=== PATIENT | female | born 1960 | race Hispanic/Latino ===

== ENCOUNTER 2016-10-09 22:42 | Inpatient (IN) | payer MEDICAID ==
--- NOTE | 2016-10-09 22:53 | C.PDOC ---
History Of Present Illness Patient is a transfer from [facility] for psychiatric admission. Patient is being treated for depression and ETOH abuse; has been medically cleared by [facility]. Denies any physical complaints at this time. Time Seen by Provider: 10/09/16 22:52 Chief Complaint (Nursing): Psychiatric Evaluation History Per: Patient History/Exam Limitations: no limitations Onset/Duration Of Symptoms: Hrs Current Symptoms Are (Timing): Still Present Suicide/Self Injury Attempted (Context): None Modifying Factor(s): None Severity: None Associated Symptoms: Depression. denies: Suicidal Thoughts, Suicidal Plan Involuntary Hold By: None Recent travel outside of the [place]: No Past Medical History Reviewed: Historical Data, Nursing Documentation, Vital Signs Vital Signs: Last Vital Signs Temp 97.5 F L 10/09/16 22:53 Pulse 78 10/09/16 22:53 Resp 20 10/09/16 22:53 BP Pulse Ox 98 10/09/16 22:53 - Medical History PMH: Asthma, Bipolar Disorder, COPD, HTN Surgical History: No Surg Hx Family History: States: No Known Family Hx - Social History Hx Alcohol Use: Yes (daily use for mos) Review Of Systems Constitutional: Negative for: Fever, Chills Gastrointestinal: Negative for: Nausea, Vomiting, Diarrhea Psych: Positive for: Depression Physical Exam - Physical Exam Appears: Non-toxic Skin: Warm, Dry Oral Mucosa: Moist Chest: Symmetrical, No Tenderness Cardiovascular: Rhythm Regular, No Murmur Respiratory: No Rales, No Rhonchi, No Wheezing Gastrointestinal/Abdominal: Soft, No Tenderness Neurological/Psych: Oriented x3 Disposition Discussed With : Dalton Almazan Comment: accepted the pt on his service and took over the care Doctor Will See Patient In The: Hospital Counseled Patient/Family Regarding: Studies Performed, Diagnosis - Disposition Disposition: HOSPITALIZED Disposition Time: 23:00 Condition: FAIR - Clinical Impression Clinical Impression: Depression - Scribe Statement The provider has reviewed the documentation as recorded by the Scribe Cecil Silva All medical record entries made by the Scribe were at my direction and personally dictated by me. I have reviewed the chart and agree that the record accurately reflects my personal performance of the history, physical exam, medical decision making, and the department course for this patient. I have also personally directed, reviewed, and agree with the discharge instructions and disposition. Decision To Admit - Pt Status Changed To: Hospital Disposition Of: Inpatient - Admit Certification Admit to Inpatient:: After my assessment, the patient will require hospitalization for at least two midnights. This is because of the severity of symptoms shown, intensity of services needed, and/or the medical risk in this patient being treated as an outpatient. - InPatient: Physician Admission Certification: I certify that this patient requires 2 or more midnights of care for the following reason:: After my assessment, the patient will require hospitalization for at least two midnights. This is because of the severity of symptoms shown, intensity of services needed, and/or the medical risk in this patient being treated as an outpatient. - . Bed Request Type: Psychiatry Admitting Physician: Dalton Almazan Patient Diagnosis: Depression
--- NOTE | 2016-10-10 11:54 | PCM.PSYCH ---
Initial Psychiatric Evaluation - Initial Psychiatric Evaluation Type of Admission: Voluntary Legal Status: Capacity Chief Complaint (in patient's own words): I was feeling depressed and suicidal History of Present Illness and Precipitating Events: This is a 56 years old CF, who lives with her and currently unemployed, came to the hospital with depressed mood and suicidal ideation with plan to slash her wrist. Patient reports a long history of depression and drinking. Patient reports that she has been admitted in a psychiatric hospital many years ago. As per her, her mother passed way last year and since then she is drinking heavily. She has been drinking almost 3-4 points of what on a daily basis. Almost 3 days ago she became increasingly depressed and developed suicidal ideation [facility] Yesterday she was transferred from [facility]. Patient appeared distressed and irritable throughout the interview. She reports depressed mood, and reports at times feelings of hopelessness and helplessness. She reports poor sleep and poor appetite. She states withdrawal symptoms including shakes, headaches, sweating and anxiety. However she denies any hallucinations, delusions or any manic symptoms. She denies any other substance abuse. Medical history HTN, DM, DVT Current Medications: Active Medications Generic Name Dose Route Start Last Admin Trade Name Freq PRN Reason Stop Dose Admin Trazodone HCl 200 mg 10/10/16 22:00 Desyrel PO HS [facility] Past Psychiatric History - Past Psychiatric History Previous Treatment History: Inpatient Pertinent Medical Hx (Current Medical&Sleep Prob, Allergies): Allergies Allergy/AdvReac Type Severity Reaction Status Date / Time Sulfa (Sulfonamide Allergy RASH Verified 08/10/16 23:16 Antibiotics) Albuterol HFA [Ventolin HFA 90 mcg/actuation (8 g)] 2 puff INH RQ4 PRN 30 Days 08/13/16 Fluticasone/Salmeterol 250/50 [Advair Diskus 250/50] 1 puff IH Q12 30 Days 08/13 Folic Acid 1 mg PO DAILY #30 tab 08/13/16 Gabapentin [Neurontin] 300 mg PO BID #30 cap 08/13/16 Gabapentin [Neurontin] 600 mg PO HS #14 tab 08/13/16 Loperamide [Imodium] 2 mg PO QID PRN #5 cap 08/13/16 Multimineral/Multivitamin [Therapeutic-M Tab] 1 tab PO DAILY #30 tab 08/13/16 Nicotine 21 mg/24 hr [Nicoderm Cq] 1 patch TD DAILY #30 patch 08/13/16 Sertraline [Zoloft] 100 mg PO DAILY #14 tab 08/13/16 Thiamine [Vitamin B1 Tab] 100 mg PO DAILY #30 tab 08/13/16 metFORMIN [glucOPHAGE] 500 mg PO BIDWM 14 Days 08/13/16 traZODone [Desyrel] 150 mg PO HS #14 tab 08/13/16 Review of Systems - Review of Systems All systems: reviewed and no additional remarkable complaints except - Psychiatric Psychiatric: Anxiety, Depression, Irritability, Suicidal Ideation Mental Status Examination - Personal Presentation Personal Presentation: Looks stated age - Affect Affect: Constricted, Depressed - Motor Activity Motor Activity: Calm - Reliability in Providing Information Reliability in Providing Information: Good - Speech Speech: Organized - Mood Mood: Depressed, Anxious - Formal Thought Process Formal Thought Process: No Impairment - Obsessions/Compulsions Obsessions: No Compulsions: No - Cognitive Functions Orientation: Person, Place, Situation, Time Sensorium: Alert Attention/Concentration: Attentive Abstract Thinking: [place] Estimate of Intelligence: Below average Judgement: Imparied, as evidence by: Poor judgement, Imparied, as evidence by: Lack of insight into illness - Risk Risk: Suicidal, Withdrawal, Diminished functioning - Strength & Assets Inventory Strength & Assets Inventory: Family support DSM 5 DX - DSM 5 DSM 5 Diagnosis: Major depressive disorder recurrent severe without psychotic features Alcohol use disorder severe Alcohol withdrawal uncomplicated - Recommended/Plan of Treatment Treatment Recommendations and Plan of Treatment: Major depressive disorder recurrent severe without psychotic features -CBT -Psychoeducation -Supportive therapy, group therapy, individual therapy -Zoloft 200 mg PO Daily -Abilify 2 mg daily -Neurontin 300 mg by mouth 3 times a day -Trazodone 200 mg by mouth daily at bedtime Alcohol use disorder severe -CBT -Psychoeducation -Supportive therapy, individual therapy -Use [place] for abstinence Alcohol withdrawal uncomplicated -CBT -Psychoeducation -Supportive therapy, individual therapy -Ativan when necessary -Folic acid/thiamine/multivitamin HTN -Continue prescribed medications -Monitor signs symptoms DM -Continue prescribed medications (metformin) -Monitor signs symptoms DVT -Continue prescribed medications (Warfarin) -Monitor signs symptoms
[2016-10-10] MEDS: Multiple Vitamins Tab PO SCH (13:03)
[2016-10-10 17:37] LABS: INR 2.6
[2016-10-10] MEDS: Fluticasone-Salmeterol 250-50mcg Diskus INH SCH (21:22)
[2016-10-11] MEDS: Fluticasone-Salmeterol 250-50mcg Diskus INH SCH ×2 (08:34→22:17)
[2016-10-11 09:08] LABS: INR 2.4
[2016-10-11] MEDS: Multiple Vitamins Tab PO SCH (09:53)
--- NOTE | 2016-10-11 11:15 | PCM.PYCHPN ---
Psychiatric Progress Note - Psychiatric Progress Note Patient seen today, length of contact: 15 min Patient Chief Complaint: I m feeling depressed Problems Identified/Issues Discussed: Patient seen and evaluated, chart reviewed and discussed with the nurse. As per the staff, patient still appears isolated, depressed and withdrawn. Patient still reports depressed mood and reports withdrawal symptoms including headaches, anxiety and sweating. However she reports some improvement from yesterday. She needs some more time for stabilization. She is compliant with her medications and denies any side effects. Supportive therapy and psychoeducation were given. Medication Change: No Medical Record Reviewed: Yes Mental Status Examination - Cognitive Function Orientation: Person, Place, Situation, Time Memory: Intact Attention: WNL Concentration: Poor Association: WNL Fund of Knowledge: Poor - Mood Mood: Depressed, Anxious - Affect Affect: Constricted, Depressed - Speech Speech: Soft - Formal Thought Process Formal Thought Process: No Impairment - Suicidal Ideation Suicidal Ideation: No - Homicidal Ideation Homicidal Ideation: No Goal/Treatment Plan - Goal/Treatment Plan Need for Continued Stay: Discharge may exacerbated symptoms, Severe functional impairment Progress Toward Problem(s) and Goals/Treatment Plan: Major depressive disorder recurrent severe without psychotic features -CBT -Psychoeducation -Supportive therapy, group therapy, individual therapy -Zoloft 200 mg PO Daily -Abilify 2 mg daily -Neurontin 300 mg by mouth 3 times a day -Trazodone 200 mg by mouth daily at bedtime Alcohol use disorder severe -CBT -Psychoeducation -Supportive therapy, individual therapy -Use [place] for abstinence Alcohol withdrawal uncomplicated -CBT -Psychoeducation -Supportive therapy, individual therapy -Ativan when necessary -Folic acid/thiamine/multivitamin HTN -Continue prescribed medications -Monitor signs symptoms DM -Continue prescribed medications (metformin) -Monitor signs symptoms DVT -Continue prescribed medications (Warfarin) -Monitor signs symptoms - Smoking Cessation Smoking Cessation Initiated: No
--- NOTE | 2016-10-12 01:21 | CP.PCM.CON ---
<Breanna Anderson - Last Filed: 10/12/16 03:22> History of Present Illness - History of Present Illness History of Present Illness: Medicine Hospitalist consulted for coumadin therapy Patient is a 56 year old female with a past medical history of DM, portal vein thrombosis, and HTN (no not on meds) who came to the hospital with depressed mood and suicidal ideation with plan to slash her wrist. She is now inpatient psych. She reports that she has a history of portal vein thrombosis and is taking coumadin 5mg PO daily. She follow up with her PMD frequently and gets her INRs checked on a regular basis. She reports having HTN but states she does not take any meds because her blood pressure was too low. She has no complaints today. She states that she would like to leave this hospital and attend her outpatient program where she has more group classes. PMHx - HTN, portal vein thrombosis, DM Surg - tubal ligation Meds - coumadin 5mg daily, Metformin 500mg PO BID Allergies - sulfa FamHx - non contributory Social - smokes 1/2 pack per day for 30+ years, denies drug use, 3-4 pints of vodka per day more heavily in the last month Review of Systems - Constitutional Constitutional: absent: Chills, Fever - EENT Eyes: absent: Blurred Vision, Change in Vision - Cardiovascular Cardiovascular: absent: Chest Pain, Chest Pain at Rest, Syncope - Respiratory Respiratory: absent: Cough, Dyspnea, Dyspnea on Exertion - Gastrointestinal Gastrointestinal: absent: Abdominal Pain, Constipation, Diarrhea, Nausea, Vomiting - Musculoskeletal Musculoskeletal: absent: Numbness, Tingling Past Patient History - Past Social History Smoking Status: Current Some Days Smoker - CARDIAC Hx Hypertension: Yes - PULMONARY Hx Asthma: Yes Hx Chronic Obstructive Pulmonary Disease (COPD): Yes - NEUROLOGICAL Hx Neurological Disorder: No Other/Comment: NEUROPATHY - HEENT Hx HEENT Problems: No Other/Comment: did not bring her upper dentures or lower partial plate - RENAL Hx Chronic Kidney Disease: No Other/Comment: portal vein thrombosis - ENDOCRINE/METABOLIC Hx Adrenal Cancer: No Hx Diabetes Insipidus: No Hx Diabetes Mellitus Type 1: No Hx Diabetes Mellitus Type 2: Yes Hx Hyperthyroidism: No Hx Hypothyroidism: No Hx Systemic Lupus Erythematosus: No - HEMATOLOGICAL/ONCOLOGICAL Hx Blood Disorders: No - INTEGUMENTARY Hx Dermatological Problems: No - MUSCULOSKELETAL/RHEUMATOLOGICAL Hx Musculoskeletal Disorders: No Hx Arthritis: Yes - GASTROINTESTINAL Hx Gastrointestinal Disorders: No Hx Gall Bladder Disease: No (Cholecystectomy) - GENITOURINARY/GYNECOLOGICAL Hx Genitourinary Disorders: No - PSYCHIATRIC Hx Substance Use: Yes - SURGICAL HISTORY Hx Cholecystectomy: Yes Hx Tubal Ligation: Yes - ANESTHESIA Hx Anesthesia: Yes Hx Anesthesia Reactions: No Meds Allergies/Adverse Reactions: Allergies Allergy/AdvReac Type Severity Reaction Status Date / Time Sulfa (Sulfonamide Allergy RASH Verified 08/10/16 23:16 Antibiotics) - Medications Medications: Current Medications Acetaminophen (Tylenol 325mg Tab) 650 mg PO Q6 PRN PRN Reason: Pain, moderate (4-7) Aripiprazole (Abilify) 2 mg PO DAILY [facility] Last Admin: 10/11/16 09:53 Dose: 2 mg Famotidine (Pepcid) 20 mg PO DAILY [facility] Last Admin: 10/11/16 17:44 Dose: 20 mg Folic Acid (Folic Acid) 1 mg PO DAILY [facility] Last Admin: 10/11/16 09:53 Dose: 1 mg Gabapentin (Neurontin) 300 mg PO TID [facility] Last Admin: 10/11/16 17:25 Dose: 300 mg Hydroxyzine HCl (Atarax) 25 mg PO Q6 PRN PRN Reason: Agitation Last Admin: 10/10/16 13:06 Dose: 25 mg Lorazepam (Ativan) 1 mg PO Q4H PRN PRN Reason: Symptoms of alcohol withdrawl Metformin HCl (Glucophage) 500 mg PO BIDCC [facility] Last Admin: 10/11/16 16:29 Dose: 500 mg Multivitamins (Hexavitamin) 1 tab PO DAILY [facility] Last Admin: 10/11/16 09:53 Dose: 1 tab Nicotine (Nicoderm Cq) 1 patch TD DAILY [facility] Last Admin: 10/11/16 09:53 Dose: 1 patch Fluticasone/Salmeterol (Advair Diskus 250/50) 1 puff INH RQ12 [facility] Last Admin: 10/11/16 22:17 Dose: 1 puff Sertraline HCl (Zoloft) 200 mg PO DAILY [facility] Last Admin: 10/11/16 09:53 Dose: 200 mg Thiamine HCl (Vitamin B1 Tab) 100 mg PO DAILY [facility] Last Admin: 10/11/16 09:53 Dose: 100 mg Trazodone HCl (Desyrel) 200 mg PO HS [facility] Last Admin: 10/11/16 22:16 Dose: 200 mg Physical Exam - Constitutional Appears: Non-toxic, No Acute Distress - Head Exam Head Exam: ATRAUMATIC, NORMAL INSPECTION - Eye Exam Eye Exam: EOMI, Normal appearance, PERRL Pupil Exam: NORMAL ACCOMODATION - ENT Exam ENT Exam: Mucous Membranes Moist - Respiratory Exam Respiratory Exam: Clear to Auscultation Bilateral, NORMAL BREATHING PATTERN. absent: Accessory Muscle Use, Chest Wall Tenderness, Respiratory Distress - Cardiovascular Exam Cardiovascular Exam: REGULAR RHYTHM, +S1, +S2 - GI/Abdominal Exam GI & Abdominal Exam: Normal Bowel Sounds, Soft. absent: Distended, Firm, Guarding, Tenderness - Extremities Exam Extremities exam: Positive for: normal inspection. Negative for: calf tenderness, pedal edema - Back Exam Back exam: NORMAL INSPECTION. absent: CVA tenderness (L), CVA tenderness (R), paraspinal tenderness - Neurological Exam Neurological exam: Alert, Normal Gait, Oriented x3 Results - Vital Signs Recent Vital Signs: Last Vital Signs Temp 97.9 F 10/11/16 07:50 Pulse 92 H 10/11/16 16:05 Resp 19 10/11/16 07:50 BP 118/70 10/11/16 16:05 Pulse Ox 98 10/09/16 22:53 - Labs Labs: Laboratory Results - last 24 hr 10/11/16 10/11/16 07:25 08:45 PT 28.2 H INR 2.4 POC Glucose (mg/dL) 141 H Assessment & Plan - Assessment and Plan (Free Text) Assessment: Portal vein thrombosis Continue coumadin 5mg PO daily will monitor INR INR - 2.4 Diabetes f/u HBA1c Metformin 500 mg PO BID Asthma controlled continue Advair Duonebs prn Hx HTN controlled not on medications monitor BP All other management per psychiatry team. <French Diallo - Last Filed: 10/12/16 06:26> Meds - Medications Medications: Current Medications Acetaminophen (Tylenol 325mg Tab) 650 mg PO Q6 PRN PRN Reason: Pain, moderate (4-7) Albuterol/Ipratropium (Duoneb 3 Mg/0.5 Mg (3 Ml) Ud) 3 ml INH RQ6 PRN PRN Reason: Wheezing Aripiprazole (Abilify) 2 mg PO DAILY [facility] Last Admin: 10/11/16 09:53 Dose: 2 mg Famotidine (Pepcid) 20 mg PO DAILY [facility] Last Admin: 10/11/16 17:44 Dose: 20 mg Folic Acid (Folic Acid) 1 mg PO DAILY [facility] Last Admin: 10/11/16 09:53 Dose: 1 mg Gabapentin (Neurontin) 300 mg PO TID [facility] Last Admin: 10/11/16 17:25 Dose: 300 mg Hydroxyzine HCl (Atarax) 25 mg PO Q6 PRN PRN Reason: Agitation Last Admin: 10/10/16 13:06 Dose: 25 mg Lorazepam (Ativan) 1 mg PO Q4H PRN PRN Reason: Symptoms of alcohol withdrawl Metformin HCl (Glucophage) 500 mg PO BIDCC [facility] Last Admin: 10/11/16 16:29 Dose: 500 mg Multivitamins (Hexavitamin) 1 tab PO DAILY [facility] Last Admin: 10/11/16 09:53 Dose: 1 tab Nicotine (Nicoderm Cq) 1 patch TD DAILY [facility] Last Admin: 10/11/16 09:53 Dose: 1 patch Fluticasone/Salmeterol (Advair Diskus 250/50) 1 puff INH RQ12 [facility] Last Admin: 10/11/16 22:17 Dose: 1 puff Sertraline HCl (Zoloft) 200 mg PO DAILY [facility] Last Admin: 10/11/16 09:53 Dose: 200 mg Thiamine HCl (Vitamin B1 Tab) 100 mg PO DAILY [facility] Last Admin: 10/11/16 09:53 Dose: 100 mg Trazodone HCl (Desyrel) 200 mg PO HS [facility] Last Admin: 10/11/16 22:16 Dose: 200 mg Results - Vital Signs Recent Vital Signs: Last Vital Signs Temp 97.9 F 10/11/16 07:50 Pulse 92 H 10/11/16 16:05 Resp 19 10/11/16 07:50 BP 118/70 10/11/16 16:05 Pulse Ox 98 10/09/16 22:53 - Labs Labs: Laboratory Results - last 24 hr 10/11/16 10/11/16 07:25 08:45 PT 28.2 H INR 2.4 POC Glucose (mg/dL) 141 H Assessment & Plan - Date & Time Date: 10/12/16 (I have seen and examined the patient. I agree with the findings and plan of care as documented by Dr Anderson. Patient with history of portal vein thrombosis. Continue home dose of Coumadin. Monitor INR. Also with history of diabetes. Continue metformin. Accuchecks. Monitor for acute changes.) Time: 06:25 Attending/Attestation - Attestation I have personally seen and examined this patient.: Yes I have fully participated in the care of the patient.: Yes I have reviewed all pertinent clinical information: Yes
[2016-10-12] MEDS ORDERED: Albuterol-Ipratrop 3 mg / 0.5 (3 ml) UD INH PRN (03:31)
[2016-10-12 08:20] LABS: CHLORIDE 107 mmol/L (98-107); POTASSIUM 4.3 mmol/L (3.6-5.2); SODIUM 142 mmol/L (132-148)
[2016-10-12 08:23] LABS: ALB/GLOB RATIO 1.2 (1.0-2.1); ALKALINE PHOSPHATASE 54 U/L (38-126); ALT/SGPT 19 U/L (9-52); AST/SGOT 17 U/L (14-36); BILIRUBIN,TOTAL 0.6 mg/dL (0.2-1.3); BLOOD UREA NITROGEN 11 mg/dL (7-17); CARBON DIOXIDE 29 mmol/L (22-30); GFR AFRICAN-AMERICAN > 60; GLUCOSE,RANDOM 120 mg/dL (65-105); TOTAL PROTEIN 6.8 g/dL (6.3-8.3)
[2016-10-12 08:24] LABS: CALCIUM 8.6 mg/dl (8.6-10.4)
[2016-10-12 08:31] LABS: BASO % 0.6 % (0.0-2.0); EOS # 0.2 K/uL (0.0-0.7); EOS % 2.3 % (0.0-4.0); HEMATOCRIT 34.4 % (34.0-47.0); LYMPH % 14.1 % (20.0-40.0); MEAN CELL VOLUME 79.8 fL (81.0-99.0); MEAN CORPUSCULAR HEMOGLOBIN 24.7 pg (27.0-31.0); MEAN CORPUSCULAR HGB CONC 30.9 g/dL (33.0-37.0); MEAN PLATELET VOLUME 9.5 fL (7.2-11.7); MONO # 0.7 K/uL (0.0-0.8); NRBC % 0.1 % (0.0-2.0); RED CELL DISTRIBUTION WIDTH 20.8 % (11.5-14.5); WHITE BLOOD COUNT 6.8 K/uL (4.8-10.8)
[2016-10-12 08:32] LABS: INR 2.2
[2016-10-12] MEDS: Fluticasone-Salmeterol 250-50mcg Diskus INH SCH ×2 (08:34→20:12)
[2016-10-12] MEDS: Multiple Vitamins Tab PO SCH (10:01)
--- NOTE | 2016-10-12 18:02 | PCM.PYCHPN ---
Psychiatric Progress Note - Psychiatric Progress Note Patient seen today, length of contact: 16 min Patient Chief Complaint: "Too anxious" Problems Identified/Issues Discussed: The pt is seen, chart reviewed, case discussed with staff. The pt is compliant with medications and reports no side-effects. Symptoms are improving but needs more time to stabilize. After care discussed, support and psychoeducation given. Medicine consult appreciated. Abilify increased as planned [place] used. Medication Change: Yes (increase abilify) Medical Record Reviewed: Yes Mental Status Examination - Cognitive Function Orientation: Person, Place, Situation, Time Memory: Intact Attention: WNL Concentration: Poor Association: WNL Fund of Knowledge: Poor - Mood Mood: Depressed, Anxious - Affect Affect: Constricted, Depressed - Speech Speech: Soft - Formal Thought Process Formal Thought Process: No Impairment - Suicidal Ideation Suicidal Ideation: No - Homicidal Ideation Homicidal Ideation: No Goal/Treatment Plan - Goal/Treatment Plan Need for Continued Stay: Discharge may exacerbated symptoms, Severe functional impairment Progress Toward Problem(s) and Goals/Treatment Plan: Continue medications Support and psychoeducation daily Attend groups and activities daily After care planning by ROBERTO who reported she will return to [facility] and be referred by them (she is moving to her children), and she was mandated to attend [facility]. However, she says she has no place to stay around [facility] and must go to her children and attend a program close-by. TBD Estimated Date of D/C: 10/15/16
--- NOTE | 2016-10-12 21:24 | CP.PCM.PN ---
<AmbreenBari lubin R - Last Filed: 10/12/16 21:21> Subjective - Date & Time of Evaluation Date of Evaluation: 10/12/16 Time of Evaluation: 15:30 - Subjective Subjective: The patient was seen at bedside in psychiatric unit in 5w. Patient was not in acute distress. Patient did not have any complaints. She is tolerating diet and sleeping well. She denies bleeding. She denies chest pain, fevers, nausea, vomiting, diarrhea, shortness of breath. Objective - Vital Signs/Intake and Output Vital Signs (last 24 hours): Temp Pulse Resp BP Pulse Ox 97.5 F L 70 20 143/95 H 99 10/12/16 08:09 10/12/16 15:46 10/12/16 08:09 10/12/16 15:46 10/12/16 08:09 - Medications Medications: Current Medications Acetaminophen (Tylenol 325mg Tab) 650 mg PO Q6 PRN PRN Reason: Pain, moderate (4-7) Last Admin: 10/12/16 15:42 Dose: 650 mg Albuterol/Ipratropium (Duoneb 3 Mg/0.5 Mg (3 Ml) Ud) 3 ml INH RQ6 PRN PRN Reason: Wheezing Aripiprazole (Abilify) 5 mg PO DAILY [facility] Famotidine (Pepcid) 20 mg PO DAILY [facility] Last Admin: 10/12/16 10:01 Dose: 20 mg Folic Acid (Folic Acid) 1 mg PO DAILY [facility] Last Admin: 10/12/16 10:01 Dose: 1 mg Gabapentin (Neurontin) 300 mg PO TID [facility] Last Admin: 10/12/16 17:44 Dose: 300 mg Hydroxyzine HCl (Atarax) 25 mg PO Q6 PRN PRN Reason: Agitation Last Admin: 10/10/16 13:06 Dose: 25 mg Lorazepam (Ativan) 1 mg PO Q4H PRN PRN Reason: Symptoms of alcohol withdrawl Metformin HCl (Glucophage) 500 mg PO BIDCC [facility] Last Admin: 10/12/16 17:44 Dose: 500 mg Multivitamins (Hexavitamin) 1 tab PO DAILY [facility] Last Admin: 10/12/16 10:01 Dose: 1 tab Nicotine (Nicoderm Cq) 1 patch TD DAILY [facility] Last Admin: 10/12/16 10:00 Dose: 1 patch Fluticasone/Salmeterol (Advair Diskus 250/50) 1 puff INH RQ12 [facility] Last Admin: 10/12/16 20:12 Dose: 1 puff Sertraline HCl (Zoloft) 200 mg PO DAILY [facility] Last Admin: 10/12/16 10:01 Dose: 200 mg Thiamine HCl (Vitamin B1 Tab) 100 mg PO DAILY [facility] Last Admin: 10/12/16 10:00 Dose: 100 mg Trazodone HCl (Desyrel) 200 mg PO HS [facility] Last Admin: 10/11/16 22:16 Dose: 200 mg - Labs Labs: 10/12/16 08:05 10/12/16 08:05 PT 26.0 SECONDS (9.7-12.2) H 10/12/16 08:05 INR 2.2 10/12/16 08:05 APTT 46 SECONDS (21-34) H 10/12/16 08:05 - Constitutional Appears: Well - Head Exam Head Exam: ATRAUMATIC, NORMAL INSPECTION, NORMOCEPHALIC - Eye Exam Eye Exam: EOMI, Normal appearance, PERRL - ENT Exam ENT Exam: Mucous Membranes Moist, Normal Exam - Neck Exam Neck Exam: Full ROM, Normal Inspection. absent: Lymphadenopathy - Respiratory Exam Respiratory Exam: Clear to Ausculation Bilateral, NORMAL BREATHING PATTERN - Cardiovascular Exam Cardiovascular Exam: REGULAR RHYTHM, +S1, +S2. absent: Murmur - GI/Abdominal Exam GI & Abdominal Exam: Soft, Normal Bowel Sounds. absent: Tenderness - Rectal Exam Rectal Exam: Deferred - Extremities Exam Extremities Exam: Full ROM, Normal Capillary Refill, Normal Inspection. absent : Joint Swelling, Pedal Edema - Neurological Exam Neurological Exam: Alert, Awake, CN II-XII Intact, Normal Gait, Oriented x3 - Psychiatric Exam Psychiatric exam: Normal Affect, Normal Mood - Skin Skin Exam: Dry, Intact, Normal Color, Warm Assessment and Plan (1) Portal vein thrombosis Assessment & Plan: INR 2.2 Patient compliant with coumidin 5mg. Will continue her coumidin while she is hospitalized. Check INR tomorrow before starting coumidin. Status: Chronic (2) Hypertension Assessment & Plan: Hydroxyzine 25 PO q6 prn monitor BP Status: Acute (3) DM type 2 (diabetes mellitus, type 2) Assessment & Plan: consistent carb diet metformin 500 mg PO BID Status: Chronic (4) Depression Assessment & Plan: Psychiatry managing patient zoloft 200mg po daily abilify 2mg daily neurontin 300mg po TID neurontin 300mg po TID trazodone 200mg po qd Status: Acute (5) Asthma Assessment & Plan: continue advair duonebs prn Status: Acute (6) Prophylactic measure Assessment & Plan: pepcid 20mg po daily Status: Acute <Grzegorz Christina M - Last Filed: 10/13/16 14:04> Objective - Vital Signs/Intake and Output Vital Signs (last 24 hours): Temp Pulse Resp BP Pulse Ox 98.2 F 84 20 113/84 99 10/13/16 08:32 10/13/16 08:32 10/13/16 08:32 10/13/16 08:32 10/12/16 08:09 - Medications Medications: Current Medications Acetaminophen (Tylenol 325mg Tab) 650 mg PO Q6 PRN PRN Reason: Pain, moderate (4-7) Last Admin: 10/13/16 10:47 Dose: 650 mg Albuterol/Ipratropium (Duoneb 3 Mg/0.5 Mg (3 Ml) Ud) 3 ml INH RQ6 PRN PRN Reason: Wheezing Aripiprazole (Abilify) 5 mg PO DAILY [facility] Last Admin: 10/13/16 09:15 Dose: 5 mg Famotidine (Pepcid) 20 mg PO DAILY [facility] Last Admin: 10/13/16 09:15 Dose: 20 mg Folic Acid (Folic Acid) 1 mg PO DAILY [facility] Last Admin: 10/13/16 09:15 Dose: 1 mg Gabapentin (Neurontin) 300 mg PO TID [facility] Last Admin: 10/13/16 09:15 Dose: 300 mg Hydroxyzine HCl (Atarax) 25 mg PO Q6 PRN PRN Reason: Agitation Last Admin: 10/10/16 13:06 Dose: 25 mg Lorazepam (Ativan) 1 mg PO Q4H PRN PRN Reason: Symptoms of alcohol withdrawl Last Admin: 10/12/16 21:51 Dose: 1 mg [facility] Last Admin: 10/13/16 09:14 Dose: 500 mg Multivitamins (Hexavitamin) 1 tab PO DAILY [facility] Last Admin: 10/13/16 09:15 Dose: 1 tab Nicotine (Nicoderm Cq) 1 patch TD DAILY [facility] Last Admin: 10/13/16 09:15 Dose: 1 patch Nystatin (Mycostatin Cream) 1 ea TOP TID [facility] Fluticasone/Salmeterol (Advair Diskus 250/50) 1 puff INH RQ12 [facility] Last Admin: 10/13/16 09:13 Dose: 1 puff Sertraline HCl (Zoloft) 200 mg PO DAILY [facility] Last Admin: 10/13/16 09:15 Dose: 200 mg Thiamine HCl (Vitamin B1 Tab) 100 mg PO DAILY [facility] Last Admin: 10/13/16 09:15 Dose: 100 mg Trazodone HCl (Desyrel) 200 mg PO HS [facility] Last Admin: 10/12/16 21:50 Dose: 200 mg Warfarin Sodium (Coumadin) 5 mg PO 1800 [facility] Stop: 10/13/16 18:01 - Labs Labs: 10/12/16 08:05 10/12/16 08:05 PT 26.3 SECONDS (9.7-12.2) H 10/13/16 07:47 INR 2.3 10/13/16 07:47 APTT 49 SECONDS (21-34) H 10/13/16 07:47 Attending/Attestation - Attestation Notes (Text): 10/13/16 14:04 We will continue Coumadin and monitor INR I agree with the history and physical and assessment/plan by the resident.
[2016-10-13 08:08] LABS: INR 2.3
[2016-10-13] MEDS: Fluticasone-Salmeterol 250-50mcg Diskus INH SCH ×2 (09:13→21:21)
[2016-10-13] MEDS: Multiple Vitamins Tab PO SCH (09:15)
[2016-10-13] MEDS: Nystatin 100,000 Units/gm Cream(15 gm) TOP SCH ×2 (17:50→21:21)
--- NOTE | 2016-10-13 20:55 | CP.PCM.PN ---
Subjective - Date & Time of Evaluation Date of Evaluation: 10/13/16 Time of Evaluation: 10:00 - Subjective Subjective: PGY2 on medicine Dr. Christina service: Pt seen and examined this morning at bedside. Pt complains rash under her left breast after sweating, but otherwise fine. Objective - Vital Signs/Intake and Output Vital Signs (last 24 hours): Temp Pulse Resp BP Pulse Ox 98.2 F 81 20 126/83 99 10/13/16 08:32 10/13/16 15:31 10/13/16 08:32 10/13/16 15:31 10/12/16 08:09 - Medications Medications: Current Medications Acetaminophen (Tylenol 325mg Tab) 650 mg PO Q6 PRN PRN Reason: Pain, moderate (4-7) Last Admin: 10/13/16 10:47 Dose: 650 mg Albuterol/Ipratropium (Duoneb 3 Mg/0.5 Mg (3 Ml) Ud) 3 ml INH RQ6 PRN PRN Reason: Wheezing Aripiprazole (Abilify) 5 mg PO DAILY [facility] Last Admin: 10/13/16 09:15 Dose: 5 mg Famotidine (Pepcid) 20 mg PO DAILY [facility] Last Admin: 10/13/16 09:15 Dose: 20 mg Folic Acid (Folic Acid) 1 mg PO DAILY [facility] Last Admin: 10/13/16 09:15 Dose: 1 mg Gabapentin (Neurontin) 300 mg PO TID [facility] Last Admin: 10/13/16 17:50 Dose: 300 mg Hydroxyzine HCl (Atarax) 25 mg PO Q6 PRN PRN Reason: Agitation Last Admin: 10/10/16 13:06 Dose: 25 mg Lorazepam (Ativan) 1 mg PO Q4H PRN PRN Reason: Symptoms of alcohol withdrawl Last Admin: 10/12/16 21:51 Dose: 1 mg Metformin HCl (Glucophage) 500 mg PO BIDCC [facility] Last Admin: 10/13/16 17:49 Dose: 500 mg Multivitamins (Hexavitamin) 1 tab PO DAILY [facility] Last Admin: 10/13/16 09:15 Dose: 1 tab Nicotine (Nicoderm Cq) 1 patch TD DAILY [facility] Last Admin: 10/13/16 09:15 Dose: 1 patch Nystatin (Mycostatin Cream) 1 ea TOP TID [facility] Last Admin: 10/13/16 17:50 Dose: 1 applic Fluticasone/Salmeterol (Advair Diskus 250/50) 1 puff INH RQ12 [facility] Last Admin: 10/13/16 09:13 Dose: 1 puff Sertraline HCl (Zoloft) 200 mg PO DAILY [facility] Last Admin: 10/13/16 09:15 Dose: 200 mg Thiamine HCl (Vitamin B1 Tab) 100 mg PO DAILY [facility] Last Admin: 10/13/16 09:15 Dose: 100 mg Trazodone HCl (Desyrel) 200 mg PO HS [facility] Last Admin: 10/12/16 21:50 Dose: 200 mg - Labs Labs: 10/12/16 08:05 10/12/16 08:05 PT 26.3 SECONDS (9.7-12.2) H 10/13/16 07:47 INR 2.3 10/13/16 07:47 APTT 49 SECONDS (21-34) H 10/13/16 07:47 - Constitutional Appears: Non-toxic, No Acute Distress - Head Exam Head Exam: NORMAL INSPECTION, NORMOCEPHALIC - Eye Exam Eye Exam: Normal appearance Pupil Exam: NORMAL ACCOMODATION - Respiratory Exam Respiratory Exam: Clear to Ausculation Bilateral, NORMAL BREATHING PATTERN. absent: Rhonchi, Wheezes - Cardiovascular Exam Cardiovascular Exam: REGULAR RHYTHM, +S1, +S2. absent: Gallop, Rubs - GI/Abdominal Exam GI & Abdominal Exam: Soft, Normal Bowel Sounds. absent: Tenderness - Extremities Exam Extremities Exam: absent: Pedal Edema - Neurological Exam Neurological Exam: Alert, Awake, Oriented x3 - Psychiatric Exam Psychiatric exam: Normal Mood - Skin Skin Exam: Erythema (under skin fold between abdomen and left breast) Assessment and Plan - Assessment and Plan (Free Text) Assessment: (1) Portal vein thrombosis Assessment & Plan: INR 2.3 today Patient compliant with coumadin 5mg. Will continue her coumadin while she is hospitalized. Check INR tomorrow Status: Chronic (2) Hypertension Assessment & Plan: Hydroxyzine 25 PO q6 prn monitor BP Status: Acute (3) DM type 2 (diabetes mellitus, type 2) Assessment & Plan: consistent carb diet metformin 500 mg PO BID Status: Chronic (4) Depression Assessment & Plan: Psychiatry managing patient zoloft 200mg po daily abilify 2mg daily neurontin 300mg po TID neurontin 300mg po TID trazodone 200mg po qd Status: Acute (5) Asthma Assessment & Plan: continue advair duonebs prn Status: Acute (6) Prophylactic measure Assessment & Plan: pepcid 20mg po daily Nystatin cream for rash Status: Acute
[2016-10-14 06:58] VITALS: O2SAT 96
[2016-10-14 09:49] LABS: INR 2.1
[2016-10-14] MEDS: Multiple Vitamins Tab PO SCH (09:51)
[2016-10-14] MEDS: Nystatin 100,000 Units/gm Cream(15 gm) TOP SCH ×3 (10:06→21:14)
[2016-10-14] MEDS: Fluticasone-Salmeterol 250-50mcg Diskus INH SCH ×2 (10:07→21:30)
--- NOTE | 2016-10-14 16:12 | CP.PCM.PN ---
<Prateek Villarreal - Last Filed: 10/14/16 16:10> Subjective - Date & Time of Evaluation Date of Evaluation: 10/14/16 Time of Evaluation: 09:00 - Subjective Subjective: PGY3 on medicine Dr. Barfield service: Pt seen and examined in hallway. Pt in good spirit and reports going to get discharged tomorrow. Objective - Vital Signs/Intake and Output Vital Signs (last 24 hours): Temp Pulse Resp BP Pulse Ox 98.2 F 90 18 100/60 96 10/14/16 06:57 10/14/16 15:30 10/14/16 06:57 10/14/16 15:30 10/14/16 06:57 - Medications Medications: Current Medications Acetaminophen (Tylenol 325mg Tab) 650 mg PO Q6 PRN PRN Reason: Pain, moderate (4-7) Last Admin: 10/13/16 10:47 Dose: 650 mg Albuterol/Ipratropium (Duoneb 3 Mg/0.5 Mg (3 Ml) Ud) 3 ml INH RQ6 PRN PRN Reason: Wheezing Aripiprazole (Abilify) 5 mg PO DAILY [facility] Last Admin: 10/14/16 10:10 Dose: 5 mg Famotidine (Pepcid) 20 mg PO DAILY [facility] Last Admin: 10/14/16 10:06 Dose: 20 mg Folic Acid (Folic Acid) 1 mg PO DAILY [facility] Last Admin: 10/14/16 09:51 Dose: 1 mg Gabapentin (Neurontin) 300 mg PO TID [facility] Last Admin: 10/14/16 14:09 Dose: 300 mg Hydroxyzine HCl (Atarax) 25 mg PO Q6 PRN PRN Reason: Agitation Last Admin: 10/10/16 13:06 Dose: 25 mg Lorazepam (Ativan) 1 mg PO Q4H PRN PRN Reason: Symptoms of alcohol withdrawl Last Admin: 10/12/16 21:51 Dose: 1 mg Metformin HCl (Glucophage) 500 mg PO BIDCC [facility] Last Admin: 10/14/16 09:51 Dose: 500 mg Multivitamins (Hexavitamin) 1 tab PO DAILY [facility] Last Admin: 10/14/16 09:51 Dose: 1 tab Nicotine (Nicoderm Cq) 1 patch TD DAILY [facility] Last Admin: 10/14/16 09:51 Dose: 1 patch Nystatin (Mycostatin Cream) 1 ea TOP TID [facility] Last Admin: 10/14/16 14:09 Dose: Not Given Fluticasone/Salmeterol (Advair Diskus 250/50) 1 puff INH RQ12 [facility] Last Admin: 10/14/16 10:07 Dose: 1 puff Sertraline HCl (Zoloft) 200 mg PO DAILY [facility] Last Admin: 10/14/16 09:51 Dose: 100 mg Thiamine HCl (Vitamin B1 Tab) 100 mg PO DAILY [facility] Last Admin: 10/14/16 09:51 Dose: 100 mg Trazodone HCl (Desyrel) 200 mg PO HS [facility] Last Admin: 10/13/16 21:21 Dose: 200 mg Warfarin Sodium (Coumadin) 5 mg PO 1800 [facility] Stop: 10/14/16 18:01 - Labs Labs: 10/12/16 08:05 10/12/16 08:05 PT 23.9 SECONDS (9.7-12.2) H 10/14/16 09:19 INR 2.1 10/14/16 09:19 APTT 49 SECONDS (21-34) H 10/13/16 07:47 - Constitutional Appears: Non-toxic, No Acute Distress - Head Exam Head Exam: NORMOCEPHALIC - Eye Exam Eye Exam: Normal appearance Pupil Exam: NORMAL ACCOMODATION - Respiratory Exam Respiratory Exam: Clear to Ausculation Bilateral, NORMAL BREATHING PATTERN. absent: Wheezes - Cardiovascular Exam Cardiovascular Exam: REGULAR RHYTHM, +S1, +S2 - GI/Abdominal Exam GI & Abdominal Exam: Soft, Normal Bowel Sounds - Neurological Exam Neurological Exam: Alert, Awake, Oriented x3 Assessment and Plan - Assessment and Plan (Free Text) Assessment: (1) Portal vein thrombosis Assessment & Plan: INR 2.1 today Patient compliant with coumadin 5mg. Will continue her coumadin while she is hospitalized. Check INR tomorrow Status: Chronic (2) Hypertension Assessment & Plan: Hydroxyzine 25 PO q6 prn monitor BP Status: Acute (3) DM type 2 (diabetes mellitus, type 2) Assessment & Plan: consistent carb diet metformin 500 mg PO BID Status: Chronic (4) Depression Assessment & Plan: Psychiatry managing patient zoloft 200mg po daily abilify 2mg daily neurontin 300mg po TID neurontin 300mg po TID trazodone 200mg po qd Status: Acute (5) Asthma Assessment & Plan: continue advair duonebs prn Status: Acute (6) Prophylactic measure Assessment & Plan: pepcid 20mg po daily Nystatin cream for rash Status: Acute <King Barfield - Last Filed: 10/14/16 16:58> Objective - Vital Signs/Intake and Output Vital Signs (last 24 hours): Temp Pulse Resp BP Pulse Ox 98.2 F 90 18 100/60 96 10/14/16 06:57 10/14/16 15:30 10/14/16 06:57 10/14/16 15:30 10/14/16 06:57 - Medications Medications: Current Medications Acetaminophen (Tylenol 325mg Tab) 650 mg PO Q6 PRN PRN Reason: Pain, moderate (4-7) Last Admin: 10/13/16 10:47 Dose: 650 mg Albuterol/Ipratropium (Duoneb 3 Mg/0.5 Mg (3 Ml) Ud) 3 ml INH RQ6 PRN PRN Reason: Wheezing Aripiprazole (Abilify) 5 mg PO DAILY [facility] Last Admin: 10/14/16 10:10 Dose: 5 mg Famotidine (Pepcid) 20 mg PO DAILY [facility] Last Admin: 10/14/16 10:06 Dose: 20 mg Folic Acid (Folic Acid) 1 mg PO DAILY [facility] Last Admin: 10/14/16 09:51 Dose: 1 mg Gabapentin (Neurontin) 300 mg PO TID [facility] Last Admin: 10/14/16 14:09 Dose: 300 mg Hydroxyzine HCl (Atarax) 25 mg PO Q6 PRN PRN Reason: Agitation Last Admin: 10/10/16 13:06 Dose: 25 mg Lorazepam (Ativan) 1 mg PO Q4H PRN PRN Reason: Symptoms of alcohol withdrawl Last Admin: 10/12/16 21:51 Dose: 1 mg Metformin HCl (Glucophage) 500 mg PO BIDCC [facility] Last Admin: 10/14/16 09:51 Dose: 500 mg Multivitamins (Hexavitamin) 1 tab PO DAILY [facility] Last Admin: 10/14/16 09:51 Dose: 1 tab Nicotine (Nicoderm Cq) 1 patch TD DAILY [facility] Last Admin: 10/14/16 09:51 Dose: 1 patch Nystatin (Mycostatin Cream) 1 ea TOP TID [facility] Last Admin: 10/14/16 14:09 Dose: Not Given Fluticasone/Salmeterol (Advair Diskus 250/50) 1 puff INH RQ12 [facility] Last Admin: 10/14/16 10:07 Dose: 1 puff Sertraline HCl (Zoloft) 200 mg PO DAILY [facility] Last Admin: 10/14/16 09:51 Dose: 100 mg Thiamine HCl (Vitamin B1 Tab) 100 mg PO DAILY [facility] Last Admin: 10/14/16 09:51 Dose: 100 mg Trazodone HCl (Desyrel) 200 mg PO HS [facility] Last Admin: 10/13/16 21:21 Dose: 200 mg Warfarin Sodium (Coumadin) 5 mg PO 1800 [facility] Stop: 10/14/16 18:01 - Labs Labs: 10/12/16 08:05 10/12/16 08:05 PT 23.9 SECONDS (9.7-12.2) H 10/14/16 09:19 INR 2.1 10/14/16 09:19 APTT 49 SECONDS (21-34) H 10/13/16 07:47 Attending/Attestation - Attestation I have personally seen and examined this patient.: Yes I have fully participated in the care of the patient.: Yes I have reviewed all pertinent clinical information, including history, physical exam and plan: Yes Notes (Text): 10/14/16 16:57 Medical Attending: Patient was seen and examined by me. She was in the hallway and ambulating without assistance. Not in any acute distress when we saw her continue with the coumadin, check INR She says she needs to go home with an RX for coumadin tommorrbecki Barfield
--- NOTE | 2016-10-15 00:21 | PCM.PYCHPN ---
Psychiatric Progress Note - Psychiatric Progress Note Patient seen today, length of contact: 15 min Patient Chief Complaint: I WILL HAVE TO LIVE WITH MY DAUGHTER. MY AUNT CLEANED OUT MY FATHER'S HOUSE Problems Identified/Issues Discussed: IOC [facility] [place] [facility] Medical Problems: NOTHING ACUTE Diagnostic Results: REVIEWED DSM 5 Symptoms Update: ANERGY Medication Change: No Medical Record Reviewed: Yes Mental Status Examination - Cognitive Function Orientation: Person, Place, Situation, Time Memory: Intact Attention: WNL Concentration: Poor Association: WNL Fund of Knowledge: WNL - Mood Mood: Depressed, Anxious - Affect Affect: Depressed - Speech Speech: Soft - Formal Thought Process Formal Thought Process: No Impairment - Suicidal Ideation Suicidal Ideation: No - Homicidal Ideation Homicidal Ideation: No Goal/Treatment Plan - Goal/Treatment Plan Need for Continued Stay: Remain at risks for inpatient hospitalization, Discharge may exacerbated symptoms, Severe functional impairment Progress Toward Problem(s) and Goals/Treatment Plan: MDD CONTINUE ZOLOFT AND ABILIFY ALCOHOL WITHDRAWAL CBT TX LIBRIUM TAPER ALCOHOL USE DISORDER SUPPORTIVE PSYCHOTHERAPY Estimated Date of D/C: 10/15/16 - Smoking Cessation Smoking Cessation Initiated: Yes
--- NOTE | 2016-10-15 02:16 | PCM.PYCHPN ---
Psychiatric Progress Note - Psychiatric Progress Note Patient seen today, length of contact: 15 min Patient Chief Complaint: I KNOW I HAVE TO STOP DRINKING BUT I CAQNNOT SEEM TO STAY SOBER! Problems Identified/Issues Discussed: SYMPTOM MANAGEMENT PAWS Medical Problems: NOTHING ACUTE Diagnostic Results: INR 2.1 DSM 5 Symptoms Update: ANXIETY Medication Change: No Medical Record Reviewed: Yes Mental Status Examination - Cognitive Function Orientation: Person, Place, Time Memory: Intact Attention: WNL Association: [facility] Fund of Knowledge: WN - Mood Mood: Depressed, Anxious - Affect Affect: Depressed - Speech Speech: Appropriate - Formal Thought Process Formal Thought Process: No Impairment - Suicidal Ideation Suicidal Ideation: No - Homicidal Ideation Homicidal Ideation: No Goal/Treatment Plan - Goal/Treatment Plan Need for Continued Stay: Remain at risks for inpatient hospitalization, Discharge may exacerbated symptoms, Severe functional impairment Progress Toward Problem(s) and Goals/Treatment Plan: MDD CONTINUE CBT RI ALCOHOL WITHDRAWAL CBT RI SUPPORTIVE PSYCHOTHERAPY ALCOHOL USE DISORDER SUPPORTIVE PSYCHOTHERAPY Estimated Date of D/C: 10/15/16
[2016-10-15] MEDS: Fluticasone-Salmeterol 250-50mcg Diskus INH SCH ×2 (08:58→21:30)
[2016-10-15 09:04] LABS: INR 1.8
[2016-10-15] MEDS: Nystatin 100,000 Units/gm Cream(15 gm) TOP SCH ×3 (09:53→17:24)
[2016-10-15] MEDS: Multiple Vitamins Tab PO SCH (09:54)
--- NOTE | 2016-10-15 13:55 | PCM.PYCHPN ---
Psychiatric Progress Note - Psychiatric Progress Note Patient seen today, length of contact: 16 min Patient Chief Complaint: "I'm very anxious today" Problems Identified/Issues Discussed: The pt is seen, chart reviewed, case discussed with staff. Support given, CBT and [facility] used briefly No new symptoms reported, improving slowly and needs some more time No SEs from medications, risks discussed. After care discussed Medication Change: Yes (increase abilify) Medical Record Reviewed: Yes Mental Status Examination - Cognitive Function Orientation: Person, Place, Time Memory: Intact Attention: WNL Association: WNL Fund of Knowledge: WNL - Mood Mood: Depressed, Anxious - Affect Affect: Depressed - Speech Speech: Appropriate - Formal Thought Process Formal Thought Process: No Impairment - Suicidal Ideation Suicidal Ideation: No - Homicidal Ideation Homicidal Ideation: No Goal/Treatment Plan - Goal/Treatment Plan Need for Continued Stay: Remain at risks for inpatient hospitalization, Discharge may exacerbated symptoms, Severe functional impairment Progress Toward Problem(s) and Goals/Treatment Plan: Continue medications Support and psychoeducation daily Attend groups and activities daily After care planning: To be referred elsewhere by [facility] Estimated Date of D/C: 10/17/16
--- NOTE | 2016-10-15 19:11 | CP.PCM.PN ---
<Bari Crook - Last Filed: 10/15/16 19:09> Subjective - Date & Time of Evaluation Date of Evaluation: 10/15/16 Time of Evaluation: 16:00 - Subjective Subjective: PGY-[address] Barfield medicine service The patient was seen at bedside in psychiatric unit in 5w. Patient was not in acute distress. Patient did not have any complaints. She is tolerating diet and sleeping well. She denies bleeding. She denies chest pain, fevers, nausea, vomiting, diarrhea, shortness of breath. Objective - Vital Signs/Intake and Output Vital Signs (last 24 hours): Temp Pulse Resp BP Pulse Ox 97.7 F 87 16 127/76 96 10/15/16 08:12 10/15/16 15:50 10/15/16 08:12 10/15/16 15:50 10/14/16 06:57 - Medications Medications: Current Medications Acetaminophen (Tylenol 325mg Tab) 650 mg PO Q6 PRN PRN Reason: Pain, moderate (4-7) Last Admin: 10/15/16 16:19 Dose: 650 mg Albuterol/Ipratropium (Duoneb 3 Mg/0.5 Mg (3 Ml) Ud) 3 ml INH RQ6 PRN PRN Reason: Wheezing Aripiprazole (Abilify) 10 mg PO DAILY [facility] Last Admin: 10/15/16 14:20 Dose: Not Given Famotidine (Pepcid) 20 mg PO DAILY [facility] Last Admin: 10/15/16 09:53 Dose: 20 mg Folic Acid (Folic Acid) 1 mg PO DAILY [facility] Last Admin: 10/15/16 09:54 Dose: 1 mg Gabapentin (Neurontin) 400 mg PO TID [facility] Last Admin: 10/15/16 17:27 Dose: 400 mg Hydroxyzine HCl (Atarax) 25 mg PO Q6 PRN PRN Reason: Agitation Last Admin: 10/10/16 13:06 Dose: 25 mg Lorazepam (Ativan) 1 mg PO Q4H PRN PRN Reason: Symptoms of alcohol withdrawl Last Admin: 10/12/16 21:51 Dose: 1 mg Metformin HCl (Glucophage) 500 mg PO BIDCC [facility] Last Admin: 10/15/16 16:19 Dose: 500 mg Multivitamins (Hexavitamin) 1 tab PO DAILY [facility] Last Admin: 10/15/16 09:54 Dose: 1 tab Nicotine (Nicoderm Cq) 1 patch TD DAILY [facility] Last Admin: 10/15/16 09:53 Dose: 1 patch Nystatin (Mycostatin Cream) 1 ea TOP TID [facility] Last Admin: 10/15/16 17:24 Dose: 1 applic Fluticasone/Salmeterol (Advair Diskus 250/50) 1 puff INH RQ12 [facility] Last Admin: 10/15/16 08:58 Dose: 1 puff Sertraline HCl (Zoloft) 200 mg PO DAILY [facility] Last Admin: 10/15/16 09:54 Dose: 200 mg Thiamine HCl (Vitamin B1 Tab) 100 mg PO DAILY [facility] Last Admin: 10/15/16 09:53 Dose: 100 mg Trazodone HCl (Desyrel) 150 mg PO HS [facility] - Labs Labs: 10/12/16 08:05 10/12/16 08:05 PT 21.1 SECONDS (9.7-12.2) H 10/15/16 08:47 INR 1.8 10/15/16 08:47 APTT 49 SECONDS (21-34) H 10/13/16 07:47 - Constitutional Appears: Well - Head Exam Head Exam: ATRAUMATIC, NORMAL INSPECTION, NORMOCEPHALIC - Eye Exam Eye Exam: EOMI, Normal appearance, PERRL Pupil Exam: NORMAL ACCOMODATION, PERRL - ENT Exam ENT Exam: Mucous Membranes Moist, Normal Exam - Neck Exam Neck Exam: Full ROM, Normal Inspection. absent: Lymphadenopathy - Respiratory Exam Respiratory Exam: Clear to Ausculation Bilateral, NORMAL BREATHING PATTERN - Cardiovascular Exam Cardiovascular Exam: REGULAR RHYTHM, +S1, +S2. absent: Murmur - GI/Abdominal Exam GI & Abdominal Exam: Soft, Normal Bowel Sounds. absent: Tenderness - Rectal Exam Rectal Exam: Deferred - Back Exam Back Exam: NORMAL INSPECTION - Neurological Exam Neurological Exam: Alert, Awake, Oriented x3 - Psychiatric Exam Psychiatric exam: Normal Affect, Normal Mood - Skin Skin Exam: Dry, Intact, Normal Color, Warm Assessment and Plan (1) Portal vein thrombosis Status: Chronic (2) Hypertension Status: Acute (3) DM type 2 (diabetes mellitus, type 2) Status: Chronic (4) Depression Status: Acute (5) Asthma Status: Acute (6) Prophylactic measure Status: Acute - Assessment and Plan (Free Text) Assessment: (1) Portal vein thrombosis Assessment & Plan: INR 1.8 today Patient compliant with coumadin 5mg. Will continue her coumadin while she is hospitalized. Check INR tomorrow Status: Chronic (2) Hypertension Assessment & Plan: Hydroxyzine 25 PO q6 prn monitor BP Status: Acute (3) DM type 2 (diabetes mellitus, type 2) Assessment & Plan: consistent carb diet metformin 500 mg PO BID Status: Chronic (4) Depression Assessment & Plan: Psychiatry managing patient zoloft 200mg po daily abilify 2mg daily neurontin 300mg po TID neurontin 300mg po TID trazodone 200mg po qd Status: Acute (5) Asthma Assessment & Plan: continue advair duonebs prn Status: Acute (6) Prophylactic measure Assessment & Plan: pepcid 20mg po daily Nystatin cream for rash Status: Acute <King Barfield - Last Filed: 10/16/16 07:30> Objective - Vital Signs/Intake and Output Vital Signs (last 24 hours): Temp Pulse Resp BP Pulse Ox 97.7 F 87 16 127/76 96 10/15/16 08:12 10/15/16 15:50 10/15/16 08:12 10/15/16 15:50 10/14/16 06:57 - Medications Medications: Current Medications Acetaminophen (Tylenol 325mg Tab) 650 mg PO Q6 PRN PRN Reason: Pain, moderate (4-7) Last Admin: 10/15/16 16:19 Dose: 650 mg Albuterol/Ipratropium (Duoneb 3 Mg/0.5 Mg (3 Ml) Ud) 3 ml INH RQ6 PRN PRN Reason: Wheezing Aripiprazole (Abilify) 10 mg PO DAILY [facility] Last Admin: 10/15/16 14:20 Dose: Not Given Famotidine (Pepcid) 20 mg PO DAILY [facility] Last Admin: 10/15/16 09:53 Dose: 20 mg Folic Acid (Folic Acid) 1 mg PO DAILY [facility] Last Admin: 10/15/16 09:54 Dose: 1 mg Gabapentin (Neurontin) 400 mg PO TID [facility] Last Admin: 10/15/16 17:27 Dose: 400 mg Hydroxyzine HCl (Atarax) 25 mg PO Q6 PRN PRN Reason: Agitation Last Admin: 10/15/16 21:28 Dose: 25 mg Lorazepam (Ativan) 1 mg PO Q4H PRN PRN Reason: Symptoms of alcohol withdrawl Last Admin: 10/12/16 21:51 Dose: 1 mg Metformin HCl (Glucophage) 500 mg PO BIDCC [facility] Last Admin: 10/15/16 16:19 Dose: 500 mg Multivitamins (Hexavitamin) 1 tab PO DAILY [facility] Last Admin: 10/15/16 09:54 Dose: 1 tab Nicotine (Nicoderm Cq) 1 patch TD DAILY [facility] Last Admin: 10/15/16 09:53 Dose: 1 patch Nystatin (Mycostatin Cream) 1 ea TOP TID [facility] Last Admin: 10/15/16 17:24 Dose: 1 applic Fluticasone/Salmeterol (Advair Diskus 250/50) 1 puff INH RQ12 [facility] Last Admin: 10/15/16 21:30 Dose: 1 puff Sertraline HCl (Zoloft) 200 mg PO DAILY [facility] Last Admin: 10/15/16 09:54 Dose: 200 mg Thiamine HCl (Vitamin B1 Tab) 100 mg PO DAILY [facility] Last Admin: 10/15/16 09:53 Dose: 100 mg Trazodone HCl (Desyrel) 150 mg PO HS [facility] Last Admin: 10/15/16 21:30 Dose: 150 mg - Labs Labs: 10/12/16 08:05 10/12/16 08:05 PT 21.1 SECONDS (9.7-12.2) H 10/15/16 08:47 INR 1.8 10/15/16 08:47 APTT 49 SECONDS (21-34) H 10/13/16 07:47 Attending/Attestation - Attestation I have personally seen and examined this patient.: Yes I have fully participated in the care of the patient.: Yes I have reviewed all pertinent clinical information, including history, physical exam and plan: Yes Notes (Text): Medical attending: Patient was seen and examined by me, agrees the above note by medical claims processor. Recommend continue with the Coumadin 5 mg tablets at this time. The patient may or may not be going home this night, regardless there is a prescription in the chart for Coumadin 30 day supply The patient is doing well, she is ambulating in the hallway without any assistance she is able to feed and go to the back from herself Thank you very much, King Barfield
[2016-10-16] MEDS: Fluticasone-Salmeterol 250-50mcg Diskus INH SCH ×2 (07:51→20:25)
[2016-10-16 09:25] LABS: INR 1.7
[2016-10-16] MEDS: Nystatin 100,000 Units/gm Cream(15 gm) TOP SCH ×3 (10:43→18:12)
[2016-10-16] MEDS: Multiple Vitamins Tab PO SCH (10:49)
--- NOTE | 2016-10-16 12:31 | PCM.PYCHPN ---
Psychiatric Progress Note - Psychiatric Progress Note Patient seen today, length of contact: 15 min Patient Chief Complaint: I m feeling depressed Problems Identified/Issues Discussed: Patient seen and evaluated, chart reviewed and discussed with the nurse. As per the staff, patient still appears isolated, depressed and withdrawn. Patient still reports depressed mood and reports withdrawal symptoms including headaches, anxiety and sweating. However she reports some improvement from yesterday. She needs some more time for stabilization. She is compliant with her medications and denies any side effects. Supportive therapy and psychoeducation were given. Medication Change: No Medical Record Reviewed: Yes Mental Status Examination - Cognitive Function Orientation: Person, Place, Time Memory: Intact Attention: WNL Association: [facility] Fund of Knowledge: WN - Mood Mood: Depressed, Anxious - Affect Affect: Depressed - Speech Speech: Appropriate - Formal Thought Process Formal Thought Process: No Impairment - Suicidal Ideation Suicidal Ideation: No - Homicidal Ideation Homicidal Ideation: No Goal/Treatment Plan - Goal/Treatment Plan Need for Continued Stay: Remain at risks for inpatient hospitalization, Discharge may exacerbated symptoms, Severe functional impairment Progress Toward Problem(s) and Goals/Treatment Plan: Major depressive disorder recurrent severe without psychotic features -CBT -Psychoeducation -Supportive therapy, group therapy, individual therapy -Zoloft 200 mg PO Daily -Abilify 2 mg daily -Neurontin 300 mg by mouth 3 times a day -Trazodone 200 mg by mouth daily at bedtime Alcohol use disorder severe -CBT -Psychoeducation -Supportive therapy, individual therapy -Use CA for abstinence Alcohol withdrawal uncomplicated -CBT -Psychoeducation -Supportive therapy, individual therapy -Ativan when necessary -Folic acid/thiamine/multivitamin HTN -Continue prescribed medications -Monitor signs symptoms DM -Continue prescribed medications (metformin) -Monitor signs symptoms DVT -Continue prescribed medications (Warfarin) -Monitor signs symptoms Estimated Date of D/C: 10/15/16
--- NOTE | 2016-10-16 14:20 | CP.PCM.PN ---
Addendum entered and electronically signed by Bari Crook 10/16/16 15:30: Medicine is signing off. Original Note: <Bari Crook - Last Filed: 10/16/16 14:17> Subjective - Date & Time of Evaluation Date of Evaluation: 10/16/16 Time of Evaluation: 11:40 - Subjective Subjective: Patient was seen in psych unit in in the lounge. Patient was taken back to her room and examined. Patient was not in acute distress. Patient did not have any complaints. She is tolerating diet and sleeping well. She denies bleeding. She denies chest pain, fevers, nausea, vomiting, diarrhea, shortness of breath. Objective - Vital Signs/Intake and Output Vital Signs (last 24 hours): Temp Pulse Resp BP Pulse Ox 98.5 F 83 18 106/69 96 10/16/16 07:38 10/16/16 07:38 10/16/16 07:38 10/16/16 07:38 10/14/16 06:57 - Medications Medications: Current Medications Acetaminophen (Tylenol 325mg Tab) 650 mg PO Q6 PRN PRN Reason: Pain, moderate (4-7) Last Admin: 10/16/16 10:49 Dose: 650 mg Albuterol/Ipratropium (Duoneb 3 Mg/0.5 Mg (3 Ml) Ud) 3 ml INH RQ6 PRN PRN Reason: Wheezing Aripiprazole (Abilify) 10 mg PO DAILY [facility] Last Admin: 10/16/16 11:05 Dose: 10 mg Famotidine (Pepcid) 20 mg PO DAILY [facility] Last Admin: 10/16/16 10:49 Dose: 20 mg Folic Acid (Folic Acid) 1 mg PO DAILY [facility] Last Admin: 10/16/16 10:49 Dose: 1 mg Gabapentin (Neurontin) 400 mg PO TID [facility] Last Admin: 10/16/16 10:49 Dose: 400 mg Hydroxyzine HCl (Atarax) 25 mg PO Q6 PRN PRN Reason: Agitation Last Admin: 10/15/16 21:28 Dose: 25 mg Lorazepam (Ativan) 1 mg PO Q4H PRN PRN Reason: Symptoms of alcohol withdrawl Last Admin: 10/12/16 21:51 Dose: 1 mg Metformin HCl (Glucophage) 500 mg PO BIDCC [facility] Last Admin: 10/16/16 07:51 Dose: 500 mg Multivitamins (Hexavitamin) 1 tab PO DAILY [facility] Last Admin: 10/16/16 10:49 Dose: 1 tab Nicotine (Nicoderm Cq) 1 patch TD DAILY [facility] Last Admin: 10/16/16 10:49 Dose: 1 patch Nystatin (Mycostatin Cream) 1 ea TOP TID [facility] Last Admin: 10/16/16 10:43 Dose: Not Given Fluticasone/Salmeterol (Advair Diskus 250/50) 1 puff INH RQ12 [facility] Last Admin: 10/16/16 07:51 Dose: 1 puff Sertraline HCl (Zoloft) 200 mg PO DAILY [facility] Last Admin: 10/16/16 10:49 Dose: 200 mg Thiamine HCl (Vitamin B1 Tab) 100 mg PO DAILY [facility] Last Admin: 10/16/16 10:49 Dose: 100 mg Trazodone HCl (Desyrel) 150 mg PO HS [facility] Last Admin: 10/15/16 21:30 Dose: 150 mg Warfarin Sodium (Coumadin) 7.5 mg PO 1800 [facility] Stop: 10/16/16 18:01 - Labs Labs: 10/12/16 08:05 10/12/16 08:05 PT 19.8 SECONDS (9.7-12.2) H 10/16/16 09:11 INR 1.7 10/16/16 09:11 APTT 41 SECONDS (21-34) H 10/16/16 09:11 - Constitutional Appears: Well - Head Exam Head Exam: ATRAUMATIC, NORMAL INSPECTION, NORMOCEPHALIC - Eye Exam Eye Exam: EOMI, Normal appearance, PERRL - ENT Exam ENT Exam: Mucous Membranes Moist - Neck Exam Neck Exam: Full ROM - Respiratory Exam Respiratory Exam: Clear to Ausculation Bilateral, NORMAL BREATHING PATTERN - Cardiovascular Exam Cardiovascular Exam: REGULAR RHYTHM, +S1, +S2. absent: Murmur - GI/Abdominal Exam GI & Abdominal Exam: Soft, Normal Bowel Sounds. absent: Tenderness - Rectal Exam Rectal Exam: Deferred - Extremities Exam Extremities Exam: Full ROM, Normal Capillary Refill, Normal Inspection. absent : Joint Swelling, Pedal Edema - Neurological Exam Neurological Exam: Alert, Awake, Normal Gait, Oriented x3 - Psychiatric Exam Psychiatric exam: Normal Affect, Normal Mood Assessment and Plan (1) Portal vein thrombosis Status: Chronic (2) Hypertension Status: Acute (3) DM type 2 (diabetes mellitus, type 2) Status: Chronic (4) Depression Status: Acute (5) Asthma Status: Acute (6) Prophylactic measure Status: Acute - Assessment and Plan (Free Text) Assessment: - Assessment and Plan (Free Text) Assessment: (1) Portal vein thrombosis Assessment & Plan: INR 1.7 [10/16] - increased coumadin dose for tonight to 7.5mg PO INR 1.8 [10/15] Patient compliant with coumadin. Will continue her coumadin while she is hospitalized. Check INR tomorrow Status: Chronic (2) Hypertension Assessment & Plan: Hydroxyzine 25 PO q6 prn monitor BP Status: Acute (3) DM type 2 (diabetes mellitus, type 2) Assessment & Plan: consistent carb diet metformin 500 mg PO BID Status: Chronic (4) Depression Assessment & Plan: Psychiatry managing patient zoloft 200mg po daily abilify 2mg daily neurontin 300mg po TID neurontin 300mg po TID trazodone 200mg po qd Status: Acute (5) Asthma Assessment & Plan: continue advair duonebs prn Status: Acute (6) Prophylactic measure Assessment & Plan: pepcid 20mg po daily Nystatin cream for rash Status: Acute <King Barfield - Last Filed: 10/16/16 15:35> Objective - Vital Signs/Intake and Output Vital Signs (last 24 hours): Temp Pulse Resp BP Pulse Ox 98.5 F 83 18 106/69 96 10/16/16 07:38 10/16/16 07:38 10/16/16 07:38 10/16/16 07:38 10/14/16 06:57 - Medications Medications: Current Medications Acetaminophen (Tylenol 325mg Tab) 650 mg PO Q6 PRN PRN Reason: Pain, moderate (4-7) Last Admin: 10/16/16 10:49 Dose: 650 mg Albuterol/Ipratropium (Duoneb 3 Mg/0.5 Mg (3 Ml) Ud) 3 ml INH RQ6 PRN PRN Reason: Wheezing Aripiprazole (Abilify) 10 mg PO DAILY [facility] Last Admin: 10/16/16 11:05 Dose: 10 mg Famotidine (Pepcid) 20 mg PO DAILY [facility] Last Admin: 10/16/16 10:49 Dose: 20 mg Folic Acid (Folic Acid) 1 mg PO DAILY [facility] Last Admin: 10/16/16 10:49 Dose: 1 mg Gabapentin (Neurontin) 400 mg PO TID [facility] Last Admin: 10/16/16 14:29 Dose: Not Given Hydroxyzine HCl (Atarax) 25 mg PO Q6 PRN PRN Reason: Agitation Last Admin: 10/15/16 21:28 Dose: 25 mg Lorazepam (Ativan) 1 mg PO Q4H PRN PRN Reason: Symptoms of alcohol withdrawl Last Admin: 10/12/16 21:51 Dose: 1 mg Metformin HCl (Glucophage) 500 mg PO BIDCC [facility] Last Admin: 10/16/16 07:51 Dose: 500 mg Multivitamins (Hexavitamin) 1 tab PO DAILY [facility] Last Admin: 10/16/16 10:49 Dose: 1 tab Nicotine (Nicoderm Cq) 1 patch TD DAILY [facility] Last Admin: 10/16/16 10:49 Dose: 1 patch Nystatin (Mycostatin Cream) 1 ea TOP TID [facility] Last Admin: 10/16/16 14:28 Dose: Not Given Fluticasone/Salmeterol (Advair Diskus 250/50) 1 puff INH RQ12 [facility] Last Admin: 10/16/16 07:51 Dose: 1 puff Sertraline HCl (Zoloft) 200 mg PO DAILY [facility] Last Admin: 10/16/16 10:49 Dose: 200 mg Thiamine HCl (Vitamin B1 Tab) 100 mg PO DAILY [facility] Last Admin: 10/16/16 10:49 Dose: 100 mg Trazodone HCl (Desyrel) 150 mg PO HS [facility] Last Admin: 10/15/16 21:30 Dose: 150 mg Warfarin Sodium (Coumadin) 7.5 mg PO 1800 [facility] Stop: 10/16/16 18:01 - Labs Labs: 10/12/16 08:05 10/12/16 08:05 PT 19.8 SECONDS (9.7-12.2) H 10/16/16 09:11 INR 1.7 10/16/16 09:11 APTT 41 SECONDS (21-34) H 10/16/16 09:11 Attending/Attestation - Attestation I have personally seen and examined this patient.: Yes I have fully participated in the care of the patient.: Yes I have reviewed all pertinent clinical information, including history, physical exam and plan: Yes Notes (Text): 10/16/16 15:34 Medical attending: Patient was seen and examined by me, agrees the above note by medical dermatologist. The patient's INR was slightly low today were to give a one-time higher dose of Coumadin 7.5. In the meantime she should still continue with the Coumadin dose of 5 mg which is what she was taking before. There is a prescription in the chart for this as well Thank you very much, King Barfield
[2016-10-16 18:35] LABS: INR 1.7
[2016-10-17] MEDS: Fluticasone-Salmeterol 250-50mcg Diskus INH SCH ×3 (08:37→20:37)
[2016-10-17] MEDS: Multiple Vitamins Tab PO SCH (10:00)
[2016-10-17] MEDS: Nystatin 100,000 Units/gm Cream(15 gm) TOP SCH ×2 (13:16→19:31)
--- NOTE | 2016-10-17 15:23 | PCM.PYCHPN ---
Psychiatric Progress Note - Psychiatric Progress Note Patient seen today, length of contact: 16 min Patient Chief Complaint: I m feeling depressed Problems Identified/Issues Discussed: Patient seen and evaluated, chart reviewed and discussed with the nurse. As per the staff, patient still appears isolated, depressed and withdrawn. Patient still reports depressed mood and reports withdrawal symptoms including headaches, anxiety and sweating. However she reports some improvement from yesterday. She needs some more time for stabilization. She is compliant with her medications and denies any side effects. Supportive therapy and psychoeducation were given. Medication Change: Yes (increase abilify) Medical Record Reviewed: Yes Mental Status Examination - Cognitive Function Orientation: Person, Place, Time Memory: Intact Attention: WNL Association: WN Fund of Knowledge: WN - Mood Mood: Depressed, Anxious - Affect Affect: Depressed - Speech Speech: Appropriate - Formal Thought Process Formal Thought Process: No Impairment - Suicidal Ideation Suicidal Ideation: No - Homicidal Ideation Homicidal Ideation: No Goal/Treatment Plan - Goal/Treatment Plan Need for Continued Stay: Remain at risks for inpatient hospitalization, Discharge may exacerbated symptoms, Severe functional impairment Progress Toward Problem(s) and Goals/Treatment Plan: Major depressive disorder recurrent severe without psychotic features -CBT -Psychoeducation -Supportive therapy, group therapy, individual therapy -Zoloft 200 mg PO Daily -Abilify 2 mg daily -Neurontin 300 mg by mouth 3 times a day -Trazodone 200 mg by mouth daily at bedtime Alcohol use disorder severe -CBT -Psychoeducation -Supportive therapy, individual therapy -Use IN for abstinence Alcohol withdrawal uncomplicated -CBT -Psychoeducation -Supportive therapy, individual therapy -Ativan when necessary -Folic acid/thiamine/multivitamin HTN -Continue prescribed medications -Monitor signs symptoms DM -Continue prescribed medications (metformin) -Monitor signs symptoms DVT -Continue prescribed medications (Warfarin) -Monitor signs symptoms Estimated Date of D/C: 10/17/16
[2016-10-18] MEDS: Fluticasone-Salmeterol 250-50mcg Diskus INH SCH (08:30)
[2016-10-18 09:20] VITALS: RESP 19; TEMP 98.2
--- NOTE | 2016-10-18 09:57 | PCM.PYCHDC ---
Mental Status Examination - Mental Status Examination Orientation: Person, Place, Situation, Time Memory: Intact Mood: Neutral Affect: Constricted Speech: Soft Attention: WNL Concentration: WNL Association: WNL Fund of Knowledge: WNL Formal Thought Process: No Impairment Description of patient's judgement and insight: good, fair Psychotic Thoughts and Behaviors: denies any AVH Suicidal Ideation: No Current Homicidal Ideation?: No Discharge Summary - Discharge Note Reason for Hospitalization: This is a 56 years old CF, who lives with her and currently unemployed, came to the hospital with depressed mood and suicidal ideation with plan to slash her wrist. Patient reports a long history of depression and drinking. Patient reports that she has been admitted in a psychiatric hospital many years ago. As per her, her mother passed way last year and since then she is drinking heavily. She has been drinking almost 3-4 points of what on a daily basis. Almost 3 days ago she became increasingly depressed and developed suicidal ideation and went to the [facility] to get help. Yesterday she was transferred from [facility]. Patient appeared distressed and irritable throughout the interview. She reports depressed mood, and reports at times feelings of hopelessness and helplessness. She reports poor sleep and poor appetite. She states withdrawal symptoms including shakes, headaches, sweating and anxiety. However she denies any hallucinations, delusions or any manic symptoms. She denies any other substance abuse. Laboratory Data: Abnormal Lab Results 10/18/16 07:42 POC Glucose (mg/dL) 171 H Consultations:: List each consultation separately and include: 1. Reason for request. 2. Findings. 3. Follow-up Summary of Hospital Course include:: 1. Description of specific treatment plan utilized for patients during their course of treatmen. 2. Summarize the time- course for resolution of acute symptoms and/or regressed behaviors. 3. Describe issues identified and worked on during hospitalization. 4. Describe medication utilized. 5. Describe medical problems identified and treated. 6. Reassessment of suicide risk Summary of Hospital Course: This is a 56 years old CF, who lives with her and currently unemployed, came to the hospital with depressed mood and suicidal ideation with plan to slash her wrist. Patient reports a long history of depression and drinking. Patient reports that she has been admitted in a psychiatric hospital many years ago. As per her, her mother passed way last year and since then she is drinking heavily. She has been drinking almost 3-4 points of what on a daily basis. Almost 3 days ago she became increasingly depressed and developed suicidal ideation and went to the [facility] to get help. Yesterday she was transferred from [facility]. Patient appeared distressed and irritable throughout the interview. She reports depressed mood, and reports at times feelings of hopelessness and helplessness. She reports poor sleep and poor appetite. She states withdrawal symptoms including shakes, headaches, sweating and anxiety. However she denies any hallucinations, delusions or any manic symptoms. She denies any other substance abuse. Medical history HTN, DM, DVT - Final Diagnosis (DSM 5) Condition upon Discharge: FAIR Disposition: HOME/ ROUTINE Follow-up Treatment Plan: Major depressive disorder recurrent severe without psychotic features -CBT -Psychoeducation -Supportive therapy, group therapy, individual therapy -Zoloft 200 mg PO Daily -Abilify 2 mg daily -Neurontin 300 mg by mouth 3 times a day -Trazodone 200 mg by mouth daily at bedtime Alcohol use disorder severe -CBT -Psychoeducation -Supportive therapy, individual therapy -Use ID for abstinence Alcohol withdrawal uncomplicated -CBT -Psychoeducation -Supportive therapy, individual therapy -Ativan when necessary -Folic acid/thiamine/multivitamin HTN -Continue prescribed medications -Monitor signs symptoms DM -Continue prescribed medications (metformin) -Monitor signs symptoms DVT -Continue prescribed medications (Warfarin) -Monitor signs symptoms Prescriptions/Medication Reconciliation: ARIPiprazole [Abilify] 5 mg PO DAILY #30 tab Gabapentin [Neurontin] 300 mg PO TID #90 cap metFORMIN [glucOPHAGE] 500 mg PO BIDCC #60 tab Sertraline [Zoloft] 100 mg PO DAILY #60 tab traZODone [Desyrel] 100 mg PO HS #60 tab Warfarin [Coumadin] 5 mg PO 1800 #30 tab
[2016-10-18] MEDS: Multiple Vitamins Tab PO SCH (10:15)
[2016-10-18] MEDS: Nystatin 100,000 Units/gm Cream(15 gm) TOP SCH ×2 (10:56→14:10)
[2016-10-18 16:18] VITALS: BP 138/79; PULSE 93
== END 2016-10-18 18:30 | disposition home or self-care (01) | DRG 430 ==
LOC: C.ER 22:42 → C.5E 22:52
PROVIDERS: ADMIT Psychiatry & Neurology Psychiatry; ATTEND Psychiatry & Neurology Psychiatry
PROC: GZHZZZZ Group Psychotherapy (ICD-10-PCS; principal; 2016-10-09)
PROC: GZ56ZZZ Individual Psychotherapy, Supportive (ICD-10-PCS; 2016-10-09)
DX: F33.2 Major depressive disorder, recurrent severe without psychotic features (principal); I81 Portal vein thrombosis; J44.9 Chronic obstructive pulmonary disease, unspecified; F10.239 Alcohol dependence with withdrawal, unspecified; F41.8 Other specified anxiety disorders; Z79.01 Long term (current) use of anticoagulants; I10 Essential (primary) hypertension; Z86.718 Personal history of other venous thrombosis and embolism; F17.210 Nicotine dependence, cigarettes, uncomplicated; Z79.84 Long term (current) use of oral hypoglycemic drugs; Z68.39 Body mass index [BMI] 39.0-39.9, adult